=== PATIENT | male | born 1940 | race American Indian/Alaskan Native ===

== ENCOUNTER 2017-02-13 09:11 | Outpatient (CLI) | payer MEDICARE ==
--- NOTE | 2017-02-13 15:33 | PET Report ---
PET/CT:02/13/17 09:11:00 CLINICAL: Right upper lobe lung mass. RADIOPHARMACEUTICAL: 14.77mCi F18-FDG. COMPARISON: CT Chest 01/16/17 TECHNIQUE- Following intravenous injection of F-18 FDG and an approximately 60 minute uptake period, CT and PET images from the mid skull to the upper thighs were acquired with the patient in the fasted state. No contrast was administered. The CT protocol used for this PET CT study is designed for attenuation correction and anatomic localization of PET abnormalities. This solar installer pv CT is not desired to produce and cannot replace, lblxm-lz-lts-art diagnostic CT scans with specific imaging protocols for different body parts and indications. Plasma glucose at the time of this test: 93g/dl. The standardized uptake values (SUV) are normalized to patient body weight and indicate the highest activity concentration (SUV max) in a given disease site. FINDINGS: Brain--Physiologic FDG uptake in the visualized regions of the brain. Neck--Physiologic FDG uptake . Chest--Physiologic FDG uptake in mediastinal blood pool and myocardium. Lungs--the previously described wedge-shaped pleural-based right upper lobe lung opacity measures approximately 1.5 x 1.8 cm and demonstrates minimal FDG uptake with SUV 2.7. Mild patchy opacities in the adjacent lung with FDG uptake. No other lung nodule or mass. Extensive emphysema. Pleura/pericardium--No abnormal uptake. Thoracic nodes--No abnormal uptake. A prominent right axillary lymph node measures 1.5 x 1.4 cm with SUV 2.3 which is equal to background. Hepatobiliary--No abnormal uptake. Liver background SUV mean, as a reference for comparing FDG studies, is 4.2 . No liver mass. Several benign hepatic cyst. The largest is in the medial segment of the left lobe and measures 1.7 cm. Spleen--No abnormal uptake. Pancreas--No abnormal uptake. Adrenal Glands--No abnormal uptake. Kidneys/Ureters/Bladder--No abnormal uptake. Bilateral benign renal cysts. Abdominopelvic Nodes--No abnormal uptake. Bowel/Peritoneum/Mesentery--No abnormal uptake. Pelvic organs--No abnormal uptake. Bones/Soft Tissues--No abnormal uptake. No suspicious bone lesions. IMPRESSION-1. A probably benign 1.8 cm wedge-shaped pleural-based right upper lobe lung opacity. Recommend CT followup in six months. 2. Emphysema and posterior right upper lobe pneumonia versus fibrotic changes. 3. Benign hepatic cysts. 4. A probably benign right axillary lymph node with SUV uptake equal to background.
== END 2017-02-13 09:12 | disposition home or self-care (01) ==
LOC: PET 09:11
PROVIDERS: ATTEND Specialist
DX: J43.2 Centrilobular emphysema (principal); N28.1 Cyst of kidney, acquired; R91.8 Other nonspecific abnormal finding of lung field; K76.89 Other specified diseases of liver
CPT/HCPCS: 78815; A9552; 82962

== ENCOUNTER 2017-07-22 00:22 | Inpatient (IN) | payer MEDICARE ==
[2017-07-22] MEDS ORDERED: TYLENOL ONE (01:16)
[2017-07-22] MEDS ORDERED: TYLENOL PO ONE (01:25)
[2017-07-22 02:11] LABS: Basophils % (Auto) 0.2 % (0.0-1.8); Hematocrit 39.2 % (35.5-45.6); Hemoglobin 13.3 gm/dl (11.8-15.2); Mean Corpuscular HGB Conc 34 % (32-34); Mean Corpuscular Hemoglobin 29 pg (28-32); Mean Corpuscular Volume 86 fl (84-94); Platelet Count 322 K/mm3 (140-440); Red Blood Count 4.58 M/mm3 (3.65-5.03); Red Cell Distribution Width 14.1 % (13.2-15.2); White Blood Count 6.2 K/mm3 (4.5-11.0)
[2017-07-22 02:59] LABS: Anion Gap 21 mmol/L; Blood Urea Nitrogen 12 mg/dL (9-20); Calcium 8.7 mg/dL (8.4-10.2); Carbon Dioxide 22 mmol/L (22-30); Glucose 113 mg/dL (75-100); Potassium 3.5 mmol/L (3.6-5.0); Sodium 139 mmol/L (137-145)
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
--- NOTE | 2017-07-22 06:56 | Admit Criteria Form ---
Admission Criteria Documentation: CARDIOLOGY GRG Clinical Indications for Admission to Inpatient Care ([place]/check or initial the applicable condition/criteria) Hospital admission is needed for appropriate care of the patient because of ANY ONE of the following: [ ] I. Hemodynamic instability as indicated by ALL of the following (1)(2)(3) (4)(5)(6)(7)(8)(9)(10) [ ]a) Vital sign abnormality not readily corrected by appropriate treatment with 12-24 hours for ANY ONE: [ ]i) Hypotension that persists despite appropriate treatment (eg, volume repletion) [ ]ii) Tachycardiathat persists despite appropriate tx ( e.g., analgesia, fluids, sedation as indicated [ ]iii) Orthostatic vital sign changes that persists despite appropriate treatment (eg, volume repletion) [ ]b) Vital sign abnormailty that is severe indicated by ANY ONE of the following: [ ]i) Inadequate perfusion indicated by ANY ONE of the following: [ ] 1) Lactic acidosis (> 2 mmol/L) [ ] 2) New abnormal capillary refill (> 3 seconds) [ ] 3) Reduced urine output [ ] 4) New altered mental status [ ] 5) Myocardial Ischemia [ ] 6) Other metabolic acidosis (arterial pH <7.35 ) not otherwise explained. [ ]ii) Mean arterial pressure[A] less than 60 mm Hg [ ]iii) Mean arterial pressure[A] less than 70 mm Hg after 30 minutes of appropriate treatment (eg, fluid resuscitation) [ ]iv) Sustained heart rate greater than 120 beats per minute in adult or child 6 years or older[B] [ ]v) IV inotropic or vasopressor medication required to maintain adequate blood pressure or perfusion [ ] II. Severe heart failure as indicated by ANY ONE of the following(17)(18) [ ]a) Respiratory distress [ ]b) Hypotension [ ]c) Debilitating anasarca refractory to therapy (eg, tissue breakdown with infection)[C](19) [ ]d) Cardiac arrhythmias of immediate concern [ ]e) Myocardial ischemia [ ] III. Cardiac arrhythmias or findings of immediate concern indicated by ANY ONE of the following (21)(22): [ ] a) Heart rhythms that are inherently dangerous or unstable indicated by ANY ONE of the following (23)(24)(25): [ ] i) Resuscitated ventricular fibrillation or cardiac arrest [ ] ii) Ventricular escape rhythm [ ] iii) Sustained ventricular tachycardia (30 seconds or more of ventricular rhythm at greater than 100 beats per minute) [ ] iv) Nonsustained ventricular tachycardia and ANY ONE of the following: [ ] 1) Suspected cardiac ischemia as cause or consequence of ventricular tachycardia [ ] 2) Acute myocarditis [ ] b) Unstable cardiac conduction defects indicated by ANY ONE of the following(25)(26)(27) [ ] i) Type II second-degree atrioventricular block [ ]ii) Third-degree atrioventricular block [ ]iii) New-onset left bundle branch block with suspected myocardial ischemia [ ]c) Any heart rhythm and ANY ONE of the following (23)(24)(28)(29) (30) [ ] i) Continuous long-term ECG monitoring needed (e.g., initiation of drug requiring monitoring for more than 24 hours) [ ] ii) Patient has automatic implanted cardioverter defibrillator that is repeatedly firing, malfunctioning, or in need of immediate adjustment of settings beyond the scope of ambulatory or observation care [ ]d) Heart rhythms of concern due to ANY ONE of the following: [ ] i) Hypotension [ ] ii) Respiratory distress [ ] iii) Association with other significant symptoms (e.g., bradycardia with syncope or ongoing dizziness, supraventricular tachycardia with chest pain (28)(29)(31) [ ] IV. Monitoring for cardiac contusion beyond the scope of observation care needed [A](32)(33)(34) [ ] V. Surgical or device complication (e.g., valve replacement complication , ICD disfunction or pacemaker dysfunction) (49)(50)(51)(52)(53)(54) [ ] . Inpatient palliative care needed. [F](51)(52) Also use Inpatient Palliative Care Criteria [ ] VII. Nonbacterial thrombotic (marantic) endocarditis(43)(44)(55)(56)(57) [X ] VIII. Cardiology condition, symptom, or finding for which emergency and observation care has failed or are not considered appropriate. [ ] IX. Acute valvular disease requiring inpatient as indicated by ANY ONE of the following (40)(41) [ ]a) Acute valvular regurgitation (42) [ ]b) Noninfectious valvulitis (43)(44) [ ]c) Obstructive valve thrombosis (45)(46) [ ]d) Paravalvular leak(47)(48) [ ]e) Other significant valvular disorder remaining after emergency or observation level of care (as appropriate) [ ]X. Pericardial disease requiring inpatient treatment as indicated by ANY ONE of the following (35)(36)(37)(38) [ ]a) Suspected tamponade [ ]b) Hemopericardium [ ]c) Other significant pericardial disorder remaining after emergency or observation level of care (as appropriate)(39) [ ] XI. Cardiac ischemia beyond scope of emergency and observation care. [ ] XII. Cyanotic heart disease requiring inpatient care as indicated by 1 or more of the following(58)(59)(60): [ ]a) Acute onset of hypoxemia [ ]b) Exacerbation [ ] XIII. Hypertension requiring inpatient treatment as indicated by ANYONE of the following(11)(12)(13)(14): [ ]a) Severe hypertension (SBP greater than 180 mm Hg or DBP greater than 110 mm Hg, or greater than the 95th percentile for age, gender, and height in pediatric patients) that cannot be controlled (eg, to SBP less than 160 mm Hg and DBP less than 100 mm Hg) by emergency department or observation care treatment(15) [ ]b) Acute end organ damage secondary to hypertension (SBP greater than 140 mm Hg or DBP greater than 90 mm Hg) as indicated by ANYONE of the following: [ ] i) Hypertensive encephalopathy (eg, Altered mental status)(16) [ ] ii) Cerebral infarction [ ] iii) Intracranial hemorrhage [ ] iv) Myocardial ischemia or infarction [ ] v) Heart failure (eg, pulmonary edema) [ ] vi) Aortic dissection [ ] vii) Increased creatinine (new) with reduction of more than 50% in estimated glomerular filtration rate from baseline [ ] viii) Papilledema [ ] ix) Retinal hemorrhage [ ] x) Microangiopathic hemolytic anemia [ ] xi) Seizure [ ] xii) Other significant finding secondary to hypertension [ ] XIV. Complications of transplanted heart indicated by ANY ONE of the following(61): [ ]a) Acute graft rejection requiring inpatient management (eg, intravenous imunosuppression)(62)(63) [ ]b) Acute graft heart failure indicated by ANY ONE of the following(64): [ ] i) Hemodynamic instability [ ] ii) Cardiac arrhythmias of immediate concern [ ] iii) Pulmonary edema that is very severe (eg, mechanical ventilation needed, imminent or likely, need for 100% oxygen to keep oxygen saturation above 90%) [ ] iv) Pulmonary edema that is persistent as indicated by ALL of the following: [ ] 1) New need for oxygen therapy to keep oxygen saturation above 90 % (or increased FiO2 need from baseline) [ ] 2) Has not improved sufficiently with emergency department or observation care IV diuretics or other heart failure treatments[E]. [ ] iv) Altered mental status that is severe or persistent [ ] iv) Increased creatinine (new on laboratory test) with reduction of more than 50% in estimated glomerular filtration rate from baseline [ ] iv) Progressively (ongoing) rising creatinine (known from past laboratory test) with reduction of more than 25% in estimated glomerular filtration rate from baseline [ ] iv) Acute renal failure [ ] iv) Acute peripheral ischemia (eg, examination shows pulseless, cool, mottled, or cyanotic extremity) [ ] iv) Pulmonary artery catheter monitoring needed [ ] iv) Other sign or symptom of heart failure requiring inpatient treatment (ie, too severe or not responsive to outpatient and observation care treatment) [ ]c) Infection requiring inpatient management (eg, Hemodynamic instability, need for intravenous antimicrobial treatment)(66)(67)(68)(69)(70) [ ]d) Cardiac allograft vasculopathy requiring inpatient management (eg evidence of cardiacischemia)(71) [ ]e) Other complication of transplanted heart (eg, stroke, severe pulmonary hypertension, severe valvular dysfunction) requiring inpatient management(72) The original [employer] content created by [employer] has been revised. The portions of the content which have been revised are identified through the use of italic text or in bold, and [facility] has neither reviewed nor approved the modified material. All other unmodified content is copyright [employer]. Please see references footnoted in the original [employer] edition 2017 Admission Criteria Met: Yes
--- NOTE | 2017-07-22 07:22 | XRay Report ---
Chest 2 views: Compared to 07/26/16. History: Shortness of breath. Findings: Normal cardiomediastinal silhouette the trachea is line. Suspicion of nodular density noted at the inferior aspect of right clavicle. Density may be from confluence of vessels and rib, however, possibility of a lung nodule cannot be excluded. Scarring is noted in the right upper lobe. Impression: Findings as detailed above. The kidneys and abdomen for further evaluation.
[2017-07-22] MEDS ORDERED: DUONEB *Not for PRN Use IH ONE (07:26)
[2017-07-22] MEDS ORDERED: TYLENOL PO PRN (08:41)
[2017-07-22] MEDS ORDERED: PROVENTIL IH PRN (08:41)
[2017-07-22] MEDS ORDERED: NITROSTAT SL PRN (08:46)
--- NOTE | 2017-07-22 08:48 | History and Physical Report ---
<BRENDAN TOMAS - Last Filed: 07/22/17 19:19> History of Present Illness Date of examination: 07/22/17 Date of admission: 07/22/2017 Chief complaint: Chest Pain History of present illness: Patient is a 77 years old -[place]wegian male with past medical history of hypertension, who presents to the emergency department complaining of chest pain. He states that the pain began 3 weeks ago intermittent but he had a consisted of a dull chest pain since yesterday. The pain was located over the Midsternal somewhat to the epigastrium area. He describes the quality as a chest tightness/discomfort like it feels like something like something is sitting on my chest. It has been a constant pain since yesterday. No aggravating and alleviating factors. He continued to have several episodes of the pain throughout this morning, he got worried so he decided to come to emergency room. Patient did not take anything to relive the pain prior to arrival. At the ED the patient was given nitroglycerin without improvement. He reported shortness of breath and dyspnea on exertion. He denies nausea, vomiting heart palpitations lightheadedness, dizziness, and diaphoresis during these episodes of pain. The patient currently denies having chest pain. Past History Past Medical History: hypertension Past Surgical History: No surgical history, Other (Left rotator cuff, hernia repair ) Social history: denies: smoking, alcohol abuse Family history: hypertension Medications and Allergies Allergies Allergy/AdvReac Type Severity Reaction Status Date / Time coconut oil Allergy Hives Verified 02/28/15 17:03 NSAIDS (Non-Steroidal Allergy Bleeding Verified 05/20/16 13:44 Anti-Inflamma Penicillins Allergy Anaphylaxis Verified 09/12/14 10:41 tomato [Tomato] Allergy Anaphylaxis Verified 09/12/14 10:41 aspirin AdvReac Severe Unknown Verified 03/02/15 11:18 bee sting Allergy Anaphylaxis Uncoded 09/12/14 10:41 wool blankets Allergy Rash Uncoded 02/28/15 17:03 Home Medications Medication Instructions Recorded Confirmed Last Taken Type NIFEdipine 30 mg PO QDAY 10/06/15 07/22/17 10/05/15 History yes traMADol [Ultram] 50 mg PO Q4HR PRN #12 tablet 05/20/16 07/22/17 Unknown Rx Active Meds: Active Medications Acetaminophen (Tylenol) 650 mg PO Q4H PRN PRN Reason: Pain MILD(1-3)/Fever >100.5/WONG Albuterol (Proventil) 2.5 mg IH Q3HRT PRN PRN Reason: Shortness Of Breath Albuterol/Ipratropium (Duoneb *Not For Prn Use*) 1 ampul IH QIDRT KASH Bisacodyl (Dulcolax) 10 mg CA QDAY PRN PRN Reason: Constipation unrelieved by MOM Enoxaparin Sodium (Lovenox) 40 mg SUB-Q DAILY [facility] Nitroglycerin (Nitrostat) 0.4 mg SL .Q5MIN PRN PRN Reason: Chest Pain Review of Systems Constitutional: sweats, no weight loss, no weight gain, no fever, no chills Ears, nose, mouth and throat: no ear pain, no ear discharge, no tinnitis, no decreased hearing, no nose pain Cardiovascular: chest pain, shortness of breath, no orthopnea, no palpitations Respiratory: cough, cough with sputum (yellow) Gastrointestinal: no abdominal pain, no nausea, no vomiting, no diarrhea Genitourinary Male: no dysuria, no hematuria, no flank pain, no discharge, no urinary frequency, no urinary hesitancy Rectal: no pain, no incontinence, no bleeding Musculoskeletal: no neck pain, no shooting arm pain, no arm numbness/tingling, no low back pain, no shooting leg pain Integumentary: no pruritis, no redness, no sores, no wounds Neurological: no transient paralysis, no paralysis, no weakness, no parathesias Psychiatric: no memory loss, no change in sleep habits, no sleep disturbances, no insomnia Endocrine: no cold intolerance, no heat intolerance, no polyphagia, no excessive thirst Hematologic/Lymphatic: no easy bruising, no easy bleeding Allergic/Immunologic: no urticaria, no allergic rhinitis, no wheezing Exam - Constitutional Vitals: Temp Pulse Resp BP Pulse Ox 98.2 F 67 16 138/71 100 07/22/17 07:25 07/22/17 07:59 07/22/17 07:59 07/22/17 07:25 07/22/17 07:25 General appearance: Present: no acute distress - EENT Eyes: Present: PERRL ENT: hearing intact - Neck Neck: Present: supple - Respiratory Respiratory effort: normal Respiratory: bilateral: CTA - Cardiovascular Heart rate: 67 Rhythm: regular Heart Sounds: Present: S1 & S2 - Extremities Extremities: no ischemia Peripheral Pulses: within normal limits - Abdominal General gastrointestinal: Present: soft, non-tender Male genitourinary: Present: deferred - Rectal Rectal Exam: deferred - Integumentary Integumentary: Present: clear, warm, dry - Musculoskeletal Musculoskeletal: strength equal bilaterally - Psychiatric Psychiatric: appropriate mood/affect - Neurologic Neurologic: CNII-XII intact - Allied Health Allied health notes reviewed: nursing Results - Labs CBC & Chem 7: 07/22/17 01:41 07/22/17 01:41 Labs: Laboratory Last Values WBC 6.2 K/mm3 (4.5-11.0) 07/22/17 01:41 RBC 4.58 M/mm3 (3.65-5.03) 07/22/17 01:41 Hgb 13.3 gm/dl (11.8-15.2) 07/22/17 01:41 Hct 39.2 % (35.5-45.6) 07/22/17 01:41 MCV 86 fl (84-94) 07/22/17 01:41 MCH 29 pg (28-32) 07/22/17 01:41 MCHC 34 % (32-34) 07/22/17 01:41 RDW 14.1 % (13.2-15.2) 07/22/17 01:41 Plt Count 322 K/mm3 (140-440) 07/22/17 01:41 Lymph % (Auto) 30.3 % (13.4-35.0) 07/22/17 01:41 [place]y % (Auto) 15.6 % (0.0-7.3) H 07/22/17 01:41 Eos % (Auto) 1.0 % (0.0-4.3) 07/22/17 01:41 Baso % (Auto) 0.2 % (0.0-1.8) 07/22/17 01:41 Lymph # 1.9 K/mm3 (1.2-5.4) 07/22/17 01:41 [place]y # 1.0 K/mm3 (0.0-0.8) H 07/22/17 01:41 Eos # 0.1 K/mm3 (0.0-0.4) 07/22/17 01:41 Baso # 0.0 K/mm3 (0.0-0.1) 07/22/17 01:41 Seg Neutrophils % 52.9 % (40.0-70.0) 07/22/17 01:41 Seg Neutrophils # 3.3 K/mm3 (1.8-7.7) 07/22/17 01:41 Sodium 139 mmol/L (137-145) 07/22/17 01:41 Potassium 3.5 mmol/L (3.6-5.0) L 07/22/17 01:41 Chloride 100.0 mmol/L (98-107) 07/22/17 01:41 Carbon Dioxide 22 mmol/L (22-30) 07/22/17 01:41 Anion Gap 21 mmol/L 07/22/17 01:41 BUN 12 mg/dL (9-20) 07/22/17 01:41 Creatinine 1.1 mg/dL (0.8-1.5) 07/22/17 01:41 Estimated GFR > 60 ml/min 07/22/17 01:41 BUN/Creatinine Ratio 10.90 % 07/22/17 01:41 Glucose 113 mg/dL (75-100) H 07/22/17 01:41 Calcium 8.7 mg/dL (8.4-10.2) 07/22/17 01:41 Troponin T < 0.010 ng/mL (0.00-0.029) 07/22/17 06:46 - Imaging and Cardiology Chest x-ray: image reviewed (No acute cardiopulmonary process noted.) Assessment and Plan Assessment and plan: Chest Pain Admit to Telemetry floor for continues cardiac monitoring EKG normal sinus rhythm, we will also get another EKG in order for any changes that have taken since the first one. Negative cardiac enzyme X2 Nitroglycerin when necessary Abnormal stress test, patient scheduled for coronary angiogram (LHC) in AM for definitive diagnosis. Started on IV Fluid Hydration and NPO after midnight Started on Lopressor 25 mg PO BID and ASA 325mg daily we will obtain complete lipid panel in the AM VL Carotid duplex bilateral pending Cardiology consulted. Hypertension Resume on home antihypertensive pills IV hydralazine for SBP >160 Hypokalemia Replaced Closely monitor electrolytes Gastroesophageal reflux disease (GERD) Started him on protonix VTE prophylaxis Lovenox Advance Directives: Yes VTE prophylaxis?: Chemical Contraindication Mechanical VTE Prophylaxis: Treatment Not Indicated Plan of care discussed with patient/family: Yes <LAKE,RHODA Garcia - Last Filed: 07/22/17 23:55> History of Present Illness Date of admission: 07/22/17 08:41 Medications and Allergies Active Meds: Active Medications Acetaminophen (Tylenol) 650 mg PO Q4H PRN PRN Reason: Pain MILD(1-3)/Fever >100.5/WONG Last Admin: 07/22/17 17:06 Dose: 650 mg Albuterol (Proventil) 2.5 mg IH Q3HRT PRN PRN Reason: Shortness Of Breath Albuterol/Ipratropium (Duoneb *Not For Prn Use*) 1 ampul IH TIDRT [facility] Last Admin: 07/22/17 21:39 Dose: 1 ampul Aspirin (Aspirin) 325 mg PO QDAY KASH Bisacodyl (Dulcolax) 10 mg CA QDAY PRN PRN Reason: Constipation unrelieved by MOM Enoxaparin Sodium (Lovenox) 40 mg SUB-Q DAILY [facility] Last Admin: 07/22/17 10:00 Dose: Not Given Sodium Chloride (Nacl 0.9% 1000 Ml) 1,000 mls @ 75 mls/hr IV DIRECT KASH Sodium Chloride (Nacl 0.9% 500 Ml) 500 mls @ 50 mls/hr IV DIRECT [facility] Stop: 07/22/17 23:59 Metoprolol Tartrate (Lopressor) 25 mg PO BID [facility] Last Admin: 07/22/17 22:46 Dose: 25 mg Nitroglycerin (Nitrostat) 0.4 mg SL .Q5MIN PRN PRN Reason: Chest Pain Exam - Constitutional Vitals: Temp Pulse Resp BP Pulse Ox 98.6 F 88 18 138/91 94 07/22/17 20:00 07/22/17 22:46 07/22/17 20:00 07/22/17 22:46 07/22/17 20:00 Results - Labs CBC & Chem 7: 07/22/17 01:41 07/22/17 01:41 Labs: Laboratory Last Values WBC 6.2 K/mm3 (4.5-11.0) 07/22/17 01:41 RBC 4.58 M/mm3 (3.65-5.03) 07/22/17 01:41 Hgb 13.3 gm/dl (11.8-15.2) 07/22/17 01:41 Hct 39.2 % (35.5-45.6) 07/22/17 01:41 MCV 86 fl (84-94) 07/22/17 01:41 MCH 29 pg (28-32) 07/22/17 01:41 MCHC 34 % (32-34) 07/22/17 01:41 RDW 14.1 % (13.2-15.2) 07/22/17 01:41 Plt Count 322 K/mm3 (140-440) 07/22/17 01:41 Lymph % (Auto) 30.3 % (13.4-35.0) 07/22/17 01:41 Dooly % (Auto) 15.6 % (0.0-7.3) H 07/22/17 01:41 Eos % (Auto) 1.0 % (0.0-4.3) 07/22/17 01:41 Baso % (Auto) 0.2 % (0.0-1.8) 07/22/17 01:41 Lymph # 1.9 K/mm3 (1.2-5.4) 07/22/17 01:41 [place]y # 1.0 K/mm3 (0.0-0.8) H 07/22/17 01:41 Eos # 0.1 K/mm3 (0.0-0.4) 07/22/17 01:41 Baso # 0.0 K/mm3 (0.0-0.1) 07/22/17 01:41 Seg Neutrophils % 52.9 % (40.0-70.0) 07/22/17 01:41 Seg Neutrophils # 3.3 K/mm3 (1.8-7.7) 07/22/17 01:41 Sodium 139 mmol/L (137-145) 07/22/17 01:41 Potassium 3.5 mmol/L (3.6-5.0) L 07/22/17 01:41 Chloride 100.0 mmol/L (98-107) 07/22/17 01:41 Carbon Dioxide 22 mmol/L (22-30) 07/22/17 01:41 Anion Gap 21 mmol/L 08/22/17 01:41 BUN 12 mg/dL (9-20) 07/22/17 01:41 Creatinine 1.1 mg/dL (0.8-1.5) 07/22/17 01:41 Estimated GFR > 60 ml/min 07/22/17 01:41 BUN/Creatinine Ratio 10.90 % 07/22/17 01:41 Glucose 113 mg/dL (75-100) H 07/22/17 01:41 Calcium 8.7 mg/dL (8.4-10.2) 07/22/17 01:41 Troponin T < 0.010 ng/mL (0.00-0.029) 07/22/17 06:46 Assessment and Plan Assessment and plan: I saw and evaluated the patient. I agree with the findings and the plan of care as documented in the Nurse Practitioner's~note, plan for cardiac cath tomorrow.
[2017-07-22] MEDS: LOVENOX SUB-Q SCH (10:00)
[2017-07-22] MEDS ORDERED: DULCOLAX PR PRN (10:00)
[2017-07-22] MEDS ORDERED: LEXISCAN IV ONE (10:30)
[2017-07-22] MEDS ORDERED: DUONEB *Not for PRN Use IH SCH (12:00)
[2017-07-22] MEDS ORDERED: NACL 0.9% 1000 ML 1,000 ML IV SCH (13:00)
--- NOTE | 2017-07-22 13:33 | Consultation ---
History of Present Illness Consult date: 07/22/17 Requesting physician: BRENDAN TOMAS Consult reason: other (abnormal stress test) History of present illness: The patient is a 77-year-old -[place] male with a past medical history significant for hypertension, hyperlipidemia and former tobacco user (quit smoking 40 years ago). He is previously unknown to our practice. He presented with complaints of chest pain for 3 weeks prior to arrival. He describes his chest pain as an intermittent, nonradiating, midsternal pressure which is sometimes aggravated by exertion. The pain is associated with shortness of breath and sometimes dyspnea on exertion. He also admits to some intermittent dizziness over the past several months, particularly when driving. He denies any palpitations, nausea, vomiting, diaphoresis or syncope. 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 The patient underwent Lexiscan MPI stress testing this morning which showed transient ischemic dilation (value of 1.29) and which was equivocal for ischemia. Cardiology has been consulted for further evaluation/management. Past History Past Medical History: hypertension, hyperlipidemia Past Surgical History: Other (Left rotator cuff, hernia repair ) Social history: smoking (former). denies: alcohol abuse Family history: CAD (father of [place]), hypertension Medications and Allergies Allergies Allergy/AdvReac Type Severity Reaction Status Date / Time coconut oil Allergy Hives Verified 02/28/15 17:03 NSAIDS (Non-Steroidal Allergy Bleeding Verified 05/20/16 13:44 Anti-Inflamma Penicillins Allergy Anaphylaxis Verified 09/12/14 10:41 tomato [Tomato] Allergy Anaphylaxis Verified 09/12/14 10:41 aspirin AdvReac Severe Unknown Verified 03/02/15 11:18 bee sting Allergy Anaphylaxis Uncoded 09/12/14 10:41 wool blankets Allergy Rash Uncoded 02/28/15 17:03 Home Medications Medication Instructions Recorded Confirmed Last Taken Type NIFEdipine 30 mg PO QDAY 10/06/15 07/22/17 10/05/15 History yes traMADol [Ultram] 50 mg PO Q4HR PRN #12 tablet 05/20/16 07/22/17 Unknown Rx Active Meds: Active Medications Acetaminophen (Tylenol) 650 mg PO Q4H PRN PRN Reason: Pain MILD(1-3)/Fever >100.5/WONG Albuterol (Proventil) 2.5 mg IH Q3HRT PRN PRN Reason: Shortness Of Breath Albuterol/Ipratropium (Duoneb *Not For Prn Use*) 1 ampul IH TIDRT [facility] Aspirin (Aspirin) 325 mg PO QDAY [facility] Bisacodyl (Dulcolax) 10 mg [place] QDAY PRN PRN Reason: Constipation unrelieved by MOM Enoxaparin Sodium (Lovenox) 40 mg SUB-Q DAILY [facility] Last Admin: 07/22/17 10:00 Dose: Not Given Sodium Chloride (Nacl 0.9% 1000 Ml) 1,000 mls @ 75 mls/hr IV DIRECT KASH Sodium Chloride (Nacl 0.9% 500 Ml) 500 mls @ 50 mls/hr IV DIRECT [facility] Stop: 07/22/17 23:59 Metoprolol Tartrate (Lopressor) 25 mg PO BID [facility] Nitroglycerin (Nitrostat) 0.4 mg SL .Q5MIN PRN PRN Reason: Chest Pain Review of Systems Constitutional: no weight loss, no weight gain, no fever, no chills, no sweats Ears, nose, mouth and throat: no ear pain, no nose pain, no sinus pressure, no sinus pain Cardiovascular: chest pain, shortness of breath, dyspnea on exertion, high blood pressure, decreased exercise tolerance, no orthopnea, no palpitations, no rapid/irregular heart beat, no edema, no syncope, no lightheadedness, no paroxysmal nocturnal dyspnea, no leg edema Respiratory: no cough, no congestion, no wheezing, no pain on inspiration Gastrointestinal: no abdominal pain, no nausea, no vomiting, no diarrhea, no constipation, no change in bowel habits Genitourinary Male: no dysuria, no hematuria, no flank pain, no discharge, no urinary frequency, no urinary hesitancy Musculoskeletal: no neck stiffness, no neck pain, no shooting arm pain, no arm numbness/tingling, no low back pain, no shooting leg pain, no leg numbness/ tingling, no redness of joints Integumentary: no rash, no pruritis, no redness, no sores, no wounds Neurological: no head injury, no paralysis, no weakness, no parathesias, no numbness, no tingling, no seizures, no syncope Psychiatric: no anxiety Endocrine: no cold intolerance, no heat intolerance Hematologic/Lymphatic: no easy bruising, no easy bleeding, no lymphadenopathy Allergic/Immunologic: no urticaria, no wheezing, no persistent infections Physical Examination Vital Signs Temp Pulse Resp BP Pulse Ox 101.6 F H 91 H 18 126/83 95 07/22/17 01:20 07/22/17 01:20 07/22/17 01:20 07/22/17 01:20 07/22/17 01:20 General appearance: no acute distress HEENT: Positive: PERRL, Normocephaly, Mucus Membranes Moist, Other (arcus senilis) Neck: Positive: neck supple, trachea midline Cardiac: Positive: Reg Rate and Rhythm, S1/S2 Lungs: Positive: Normal Exam, clear to auscultation, Normal Breath Sounds Neuro: Positive: Grossly Intact, Motor Function Intact Abdomen: Positive: Unremarkable, Soft, Active Bowel Sounds. Negative: Tender Skin: Positive: Clear. Negative: Rash, Wound Musculoskeletal: No Fluid Collection, No Pain, Normal Range of Motion Extremities: Present: upper extr. pulses, lower extr. pulses. Absent: edema Results 07/22/17 01:41 07/22/17 01:41 - Imaging and Cardiology Echo: pending Cardiac cath: pending EKG: image reviewed EKG interpretations - Telemetry EKG Rhythm: Sinus Rhythm - EKG Sinus rhythms and dysrhythmias: sinus rhythm Assessment and Plan Assessment: Chest pain - with somewhat typical features for cardiac pain; ECG with NAF; Alison negative for AMI. Abnormal stress test HTN H/o tobacco use - quit smoking 40 years ago. Plan: Plan for coronary angiogram in AM for definitive diagnosis. Indications, potential risks, and benefits of LH reveiwed with pt and he is agreeable to proceed with LHC in AM. Consents obtained. NPO after MN. Initiate lopressor, 25mg PO BID, and ASA, 325mg daily. Obtain echocardiogram. Obtain lipid panel in AM. Assessment and plan reviewed with pt at bedside. The patient has been seen in conjunction with Dr. Walker who agrees with the assessment and plan of care.
[2017-07-22] MEDS ORDERED: NACL 0.9% 500 ML 500 ML IV SCH (14:00)
--- NOTE | 2017-07-22 14:20 | Cat Scan Report ---
CT of the chest with IV contrast. History: Nodule suspected on current chest x-ray. Findings: Severe emphysematous changes are seen with bullous changes in the upper lobes especially. There is a 1.3 cm in diameter pleural based nodule in the right posterior thorax with no discernible calcification. No additional pulmonary nodules or masses are seen. There is no pleural fluid. There is no mediastinal or hilar adenopathy. There is aneurysmal dilatation of the patient and thoracic aorta. No pleural fluid is seen. Incidental note is made of multiple circumscribed hypodensities within the liver consistent with cysts. Small cysts are noted in the upper pole of the right kidney which is incompletely imaged. Impression: 1. 1.3 cm in diameter right pleural-based nodule. Neoplastic process cannot be excluded. 2. Severe COPD/emphysema. 3. Aneurysmal dilatation of the descending thoracic aorta. 4. Multiple hepatic and right renal cysts.
[2017-07-22] MEDS ORDERED: K-DUR PO ONE (20:00)
[2017-07-22] MEDS: DUONEB *Not for PRN Use IH SCH (21:39)
[2017-07-22] MEDS ORDERED: LOPRESSOR PO SCH (22:00)
--- NOTE | 2017-07-23 01:32 | Treadmill Report ---
Resting images revealed diminished radioisotope activity in the inferior wall noted on vertical axis and short axis. However, this was less prominent on post-Lexiscan images. There was homogeneous radioisotope activity noted on the post-Lexiscan images. Gated scan revealed ejection fraction of 52% without any segmental motion abnormality. There was transient ischemic dilatation of the left ventricle post-Lexiscan at 1.29. IMPRESSION: This test is equivocal for ischemia. This is because of transient ischemic dilatation and some inferior wall decreased perfusion noted on the resting scan, although there is marked improvement on post Lexiscan images. Clinical correlation suggested. JOB# [id number] AMADO/HILTON
[2017-07-23 05:58] LABS: Anion Gap 20 mmol/L; Blood Urea Nitrogen 16 mg/dL (9-20); Calcium 8.6 mg/dL (8.4-10.2); Carbon Dioxide 22 mmol/L (22-30); Chloride 101.6 mmol/L (98-107); Glucose 114 mg/dL (75-100); Hematocrit 36.7 % (35.5-45.6); Hemoglobin 12.6 gm/dl (11.8-15.2); Mean Corpuscular HGB Conc 34 % (32-34); Mean Corpuscular Hemoglobin 30 pg (28-32); Mean Corpuscular Volume 86 fl (84-94); Platelet Count 268 K/mm3 (140-440); Potassium 3.6 mmol/L (3.6-5.0); Red Blood Count 4.25 M/mm3 (3.65-5.03); Red Cell Distribution Width 14.6 % (13.2-15.2); Sodium 140 mmol/L (137-145); White Blood Count 4.9 K/mm3 (4.5-11.0)
[2017-07-23 06:05] LABS: INR 1.09 (0.87-1.13)
[2017-07-23 06:17] LABS: Cholesterol 161 mg/dL (50-199); HDL Cholesterol 35 mg/dL (40-59); LDL Cholesterol,Direct 106 mg/dL (50-130); Triglycerides 103 mg/dL (2-149)
[2017-07-23 07:17] LABS: Anisocytosis 1+; Basophils % (Manual) 0 % (0.0-1.8); Blastocytes % (Manual) 0 %; Diff Status Complete; Platelet Estimate Consistent w Auto
[2017-07-23] MEDS: DUONEB *Not for PRN Use IH SCH ×3 (08:04→20:59)
[2017-07-23] MEDS ORDERED: ASPIRIN PO SCH (10:00)
[2017-07-23] MEDS ORDERED: HEPARIN/NS 5000 UNIT/500ML(CATH LAB) 1,000 ML IR ONE (10:12)
[2017-07-23] MEDS ORDERED: HEPARIN 10,000 UNITS/10 ML ONE (10:12)
[2017-07-23] MEDS ORDERED: CALAN ONE (10:12)
[2017-07-23] MEDS ORDERED: NITROGLYCERIN SYRINGE 0 ML ONE (10:12)
[2017-07-23] MEDS ORDERED: NACL 0.9% 500 ML 500 ML ONE (10:14)
[2017-07-23] MEDS: SUBLIMAZE ONE ×2 (10:33→11:00)
[2017-07-23] MEDS: VERSED ONE ×2 (10:34→11:01)
[2017-07-23] MEDS: XYLOCAINE 2% INFILTRATI ONE ×2 (10:36→11:01)
--- NOTE | 2017-07-23 10:41 | Progress Note ---
Assessment and Plan Assessment: Chest pain - with somewhat typical features for cardiac pain; ECG with NAF; Alison negative for AMI. CMP Mild to moderate MR Abnormal stress test HTN H/o tobacco use - quit smoking 40 years ago. ASA allergy Plan: Proceed with coronary angiogram today. Await findings. Echo reviewed - EF 40-45%, abnormal diastolic function, mild AR, mild to moderate MR, trace TR. Optimize anti-hypertensive regimen. Assessment and plan reviewed with pt at bedside. The patient has been seen in conjunction with Dr. Walker who agrees with the assessment and plan of care. Subjective Date of service: 07/23/17 Principal diagnosis: abnormal stress test Interval history: Pt seen in [facility] prior to [facility]. No complaints. VSS. Objective Last Vital Signs Temp 99.2 F 07/23/17 07:55 Pulse 74 07/23/17 08:13 Resp 16 07/23/17 08:13 BP 156/88 07/23/17 07:55 Pulse Ox 94 07/23/17 07:55 - Physical Examination General: Appears Well, No Apparent Distress HEENT: Positive: PERRL, Normocephaly, Mucus Membranes Moist, Other (arcus senilis) Neck: Positive: neck supple, trachea midline Cardiac: Positive: Reg Rate and Rhythm, S1/S2 Lungs: Positive: clear to auscultation Neuro: Positive: Grossly Intact, Motor Function Intact Abdomen: Positive: Unremarkable, Soft, Active Bowel Sounds. Negative: Tender Skin: Positive: Clear. Negative: Rash, Wound Musculoskeletal: No Fluid Collection, No Pain, Normal Range of Motion Extremities: Present: upper extr. pulses, lower extr. pulses. Absent: edema - Labs and Meds Coagulation 07/23/17 Range/Units 05:05 PT 14.7 (12.2-14.9) Sec. INR 1.09 (0.87-1.13) Lipids 07/23/17 Range/Units 05:05 Triglycerides 103 (2-149) mg/dL Cholesterol 161 (50-199) mg/dL HDL Cholesterol 35 L (40-59) mg/dL Cholesterol/HDL Ratio 4.60 % CBC 07/23/17 Range/Units 05:05 WBC 4.9 (4.5-11.0) K/mm3 RBC 4.25 (3.65-5.03) M/mm3 Hgb 12.6 (11.8-15.2) gm/dl Hct 36.7 (35.5-45.6) % Plt Count 268 (140-440) K/mm3 Comprehensive Metabolic Panel 07/23/17 Range/Units 05:05 Sodium 140 (137-145) mmol/L Potassium 3.6 (3.6-5.0) mmol/L Chloride 101.6 (98-107) mmol/L Carbon Dioxide 22 (22-30) mmol/L BUN 16 (9-20) mg/dL Creatinine 1.0 (0.8-1.5) mg/dL Glucose 114 H (75-100) mg/dL Calcium 8.6 (8.4-10.2) mg/dL - Imaging and Cardiology EKG: image reviewed Echo: report reviewed (EF 40-45%, abnormal diastolic function, mild AR, mild to moderate MR, trace TR. ) Cardiac cath: pending - Telemetry EKG Rhythm: Sinus Rhythm - EKG Sinus rhythms and dysrhythmias: sinus rhythm
[2017-07-23] MEDS: ANGIOMAX IV ONE ×2 (11:28→11:30)
[2017-07-23] MEDS ORDERED: EFFIENT PO ONE (11:37)
[2017-07-23] MEDS ORDERED: NACL 0.9% 250ML 250 ML ONE (11:48)
[2017-07-23] MEDS: EFFIENT PO SCH (11:54)
--- NOTE | 2017-07-23 11:58 | Event Note ---
Date: 07/23/17 Pt s/p LHC via right femoral artery with subsequent PCI of left circumflex coronary artery with BMS. In setting of true ASA allergy, will initiate effient alone and consider ASA desensitization as OP. Initiate lipitor. Cont observation on telemetry overnight with possible d/c home in AM. Maurice LYONS NP / DR. BAPTISTE
[2017-07-23] MEDS ORDERED: ALUM-MAG HYDROX-SIMETH 200-200-20MG/5ML PO PRN (12:16)
[2017-07-23] MEDS ORDERED: ALUM-MAG HYDROX-SIMETH 200-200-20MG/5ML ONE (12:56)
[2017-07-23] MEDS ORDERED: NACL 0.9% 1000 ML 1,000 ML ONE (13:07)
--- NOTE | 2017-07-23 13:07 | Cardiac Catherization Report ---
CARDIAC CATHETERIZATION REFERRING PHYSICIANS: 1. Mariya Borges MD 2. Arthur Walker MD INDICATION FOR PROCEDURE: The patient is a very pleasant 77-year-old -[place] gentleman with multiple risk factors presents with unstable angina and a significantly abnormal stress test, referred for left heart catheterization. Risks, benefits, and potential alternatives explained at length prior to obtaining informed consent. PROCEDURE IN DETAIL: The patient was brought to the cork slabs sawyer in a postabsorptive state, prepped and draped in sterile fashion. The patient is some 6 foot 5 and too tall for radial approach. Thus, we used a groin approach, 8 mL of 2% lidocaine used to anesthetize the right groin. A standard 6 [place] sheath used to cannulate the right common femoral artery via modified Seldinger technique. All exchanges performed to exchange a J-tip guidewire. JL3.5 catheter used to engage the left main. No dampening or ventricularization. Cineangiography performed in all projections. JR4 catheter used to cross the aortic valve under fluoroscopic guidance. Left ventriculography performed in [address] projections via hand injections, catheter flushed. Manual pullback performed with continuous pressure monitoring. Catheter used to engage the right coronary. No dampening or ventricularization. Cineangiography performed in all projections. DATA: Aortic pressure is 120/70, LV pressure is 120, LVEDP of mmHg. Left ventriculography revealed normal systolic performance with estimated ejection fraction of 50% to 55%. No evidence of aortic stenosis. CORONARY ANATOMY: This is a codominant system. Left main is a large vessel, no significant disease, bifurcates in left anterior descending and left circumflex. LAD is a moderate sized vessel, courses anterior intergroove, wraps around the apex. Luminal irregularities, but no significant disease. Left circumflex is a moderate sized vessel, courses AV groove, large OM trunk, small left PDA. There is an ulcerated 90% stenosis in the mid left circumflex, hazy, likely consistent without atherothrombosis, likely culprit. HAYDEE 2 flow. No other significant disease in the left system. Right coronary is a moderate sized vessel, courses AV groove, distally bifurcates in the posterior descending and posterolateral branches. There is mild disease in the mid segment just distal to an aneurysmal segment, which is approximately 30% to 40% stenosis. HAYDEE 3 flow. At this point, given abnormal stress test, the patient's current medications, presentation of unstable angina and catheterization finding of a culprit atherothrombotic lesion in the mid left circumflex, I decided to proceed with PCI. The patient was loaded with Angiomax. Abnormal ACT is confirmed. The patient already received aspirin. We used an EBU 3.75 guide to engage the vessel without difficulty. A [place] wire was used to cross the lesion without difficulty. We used a direct stent approach with Integrity bare metal stent 3.5 x 15, deployed at 10 JUDITH for 30 seconds. Excellent angiographic result. Next, intravascular ultrasound was performed, multiple passes were made which revealed a well apposed and well expanded stent, HAYDEE 3 flow, no complications. Final excellent angiographic result. The patient remains clinically stable, chest pain free. CONCLUSIONS: 1. Severe single vessel coronary artery disease. a. Atherothrombosis of the mid left circumflex, resulting in 80% to 90% stenosis with HAYDEE 2 flow, most likely culprit lesion. Under this, successful IVUS guided PCI with placement of integrity 3.5 x 15 bare metal stent with excellent final angiographic and ultrasonographic results. 2. Nonobstructive disease in the remainder of the coronary tree including a 30% to 40% mid right coronary stenosis. 3. Preserved left ventricular systolic performance with estimated ejection fraction of 50% to 55%. 4. No evidence of aortic stenosis. 5. Normal LVEDP. Standard groin care. Bed rest for 6 hours. The patient has been loaded with Effient and aspirin. protocol. The patient is clinically stable, chest pain free. Results of procedure were explained to the patient and all questions and concerns were addressed. There is no family available at this time. JOB# [id number] SBSaira/HILTON
--- NOTE | 2017-07-23 16:25 | Progress Note ---
Assessment and Plan Unstable angina EKG normal sinus rhythm, Negative cardiac enzyme X2 Nitroglycerin when necessary Abnormal stress test, patient was scheduled for coronary angiogram (LHC) for definitive diagnosis. Pt s/p LHC today via right femoral artery with subsequent PCI of left circumflex coronary artery with BMS. In setting of true ASA allergy, initiated effient alone and consider ASA desensitization as OP. Initiate lipitor. Hypertension Resumed on home antihypertensive pills IV hydralazine for SBP >160 Hypokalemia Replaced Closely monitor electrolytes Gastroesophageal reflux disease (GERD) Started him on protonix VTE prophylaxis Lovenox Brief History: Patient is a 77 years old -Mauritian male with past medical history of hypertension, who presented to the emergency department complaining of chest pain began 3 weeks ago intermittently, but got constant for one day before admission. Subjective Date of service: 07/23/17 Principal diagnosis: abnormal stress test Interval history: Pt seen and examined s/p cardiac cath with PCI today procedure tolerated well c/o back pain Objective - Constitutional Vitals: Vital Signs - 12hr 07/23/17 07/23/17 07/23/17 04:37 05:42 07:55 Temperature 98.2 F 99.2 F Pulse Rate 76 75 74 Pulse Rate [ Anterior Bilateral Throughout] Respiratory 18 18 Rate Respiratory Rate [Anterior Bilateral Throughout] Blood Pressure 171/92 156/88 O2 Sat by Pulse 98 94 Oximetry 07/23/17 07/23/17 07/23/17 08:04 08:13 12:00 Temperature Pulse Rate 63 Pulse Rate [ 74 74 Anterior Bilateral Throughout] Respiratory 12 Rate Respiratory 16 16 Rate [Anterior Bilateral Throughout] Blood Pressure 158/58 O2 Sat by Pulse 95 Oximetry 07/23/17 07/23/17 07/23/17 12:15 12:30 12:45 Temperature Pulse Rate 62 66 63 Pulse Rate [ Anterior Bilateral Throughout] Respiratory 16 16 22 Rate Respiratory Rate [Anterior Bilateral Throughout] Blood Pressure 155/90 168/85 140/83 O2 Sat by Pulse 92 96 95 Oximetry 07/23/17 07/23/17 07/23/17 13:00 13:15 13:45 Temperature Pulse Rate 64 67 66 Pulse Rate [ Anterior Bilateral Throughout] Respiratory 19 15 25 H Rate Respiratory Rate [Anterior Bilateral Throughout] Blood Pressure 156/99 152/101 141/88 O2 Sat by Pulse 95 99 99 Oximetry 07/23/17 07/23/17 07/23/17 13:50 13:55 14:00 Temperature Pulse Rate 63 66 65 Pulse Rate [ Anterior Bilateral Throughout] Respiratory 18 20 16 Rate Respiratory Rate [Anterior Bilateral Throughout] Blood Pressure 148/86 153/97 140/90 O2 Sat by Pulse 99 99 98 Oximetry 07/23/17 07/23/17 07/23/17 14:05 14:19 14:30 Temperature Pulse Rate 66 70 69 Pulse Rate [ Anterior Bilateral Throughout] Respiratory 20 22 20 Rate Respiratory Rate [Anterior Bilateral Throughout] Blood Pressure 145/85 158/97 162/94 O2 Sat by Pulse 100 100 100 Oximetry General appearance: Present: no acute distress, well-nourished - EENT Eyes: PERRL, EOM intact ENT: hearing intact, clear oral mucosa Ears: bilateral: normal - Neck Neck: supple, normal ROM - Respiratory Respiratory effort: normal Respiratory: bilateral: CTA - Breasts Breasts: normal - Cardiovascular Rhythm: regular Heart Sounds: Present: S1 & S2. Absent: gallop, rub Extremities: pulses intact, No edema, normal color, Full ROM - Gastrointestinal General gastrointestinal: Present: soft, non-tender, non-distended, normal bowel sounds - Integumentary Integumentary: clear, warm, dry - Musculoskeletal Musculoskeletal: 1, strength equal bilaterally - Neurologic Neurologic: moves all extremities - Psychiatric Psychiatric: memory intact, appropriate mood/affect, intact judgment & insight - Labs CBC & Chem 7: 07/23/17 05:05 07/23/17 05:05 Labs: Abnormal lab results 07/23/17 07/23/17 07/23/17 Range/Units 05:05 05:05 05:40 Monocytes % (Manual) 16.0 H (0.0-7.3) % Lymphocytes # (Manual) 1.0 L (1.2-5.4) K/mm3 Glucose 114 H (75-100) mg/dL POC Glucose 114 H (70-105) HDL Cholesterol 35 L (40-59) mg/dL - Imaging and cardiology Chest x-ray: report reviewed CT scan - chest: report reviewed
[2017-07-23] MEDS ORDERED: MORPHINE IV PRN (17:04)
[2017-07-23] MEDS ORDERED: PERCOCET 5/325 PO PRN (17:06)
[2017-07-23] MEDS: LOPRESSOR PO SCH (21:57)
[2017-07-24] MEDS: DUONEB *Not for PRN Use IH SCH ×2 (08:43→13:54)
[2017-07-24] MEDS ORDERED: ZESTRIL PO SCH (10:00)
--- NOTE | 2017-07-24 10:02 | Progress Note ---
Assessment and Plan Assessment: Chest pain - resolved; with somewhat typical features for cardiac pain; ECG with NAF; Alison negative for AMI. CAD - Pt s/p LHC via right femoral artery with subsequent PCI of left circumflex coronary artery with BMS. In setting of true ASA allergy, will initiate effient alone and consider ASA desensitization as OP. CMP - EF 40 - 45% Mild to moderate MR HTN H/o tobacco use - quit smoking 40 years ago. ASA allergy Plan: Optimize anti-hypertensive regimen - initiate lisinopril. Cont effient, lipitor, lopressor. Encourage increased activity/ambulation. If BPs improve and pt tolerates activity & ambulation today, possible discharge home this afternoon. Assessment and plan reviewed with pt at bedside. The patient has been seen in conjunction with Dr. Walker who agrees with the assessment and plan of care. Subjective Date of service: 07/24/17 Principal diagnosis: abnormal stress test Interval history: Pt resting comfortably in bed. S/p LHC via right femoral artery with PCI yesterday. Denies any chest pain overnight. BPs remain labile and elevated this AM. Pt states he has not yet been OOB. Objective Last Vital Signs Temp 97.8 F 07/24/17 08:55 Pulse 75 07/24/17 08:55 Resp 16 07/24/17 08:55 BP 133/80 07/24/17 08:55 Pulse Ox 94 07/24/17 08:55 - Physical Examination General: Appears Well, No Apparent Distress HEENT: Positive: PERRL, Normocephaly, Mucus Membranes Moist, Other (arcus senilis) Neck: Positive: neck supple, trachea midline Cardiac: Positive: Reg Rate and Rhythm, S1/S2 Lungs: Positive: clear to auscultation Neuro: Positive: Grossly Intact, Motor Function Intact Abdomen: Positive: Unremarkable, Soft, Active Bowel Sounds. Negative: Tender Skin: Positive: Clear. Negative: Rash, Wound Incision: Cardiac Cath Site (right femoral, c/d/i, no evidence of bleeding or hematoma) Musculoskeletal: No Fluid Collection, No Pain, Normal Range of Motion Extremities: Present: upper extr. pulses, lower extr. pulses. Absent: edema - Imaging and Cardiology EKG: image reviewed Echo: report reviewed (EF 40-45%, abnormal diastolic function, mild AR, mild to moderate MR, trace TR. ) Cardiac cath: report reviewed (PCI of circ) - Telemetry EKG Rhythm: Sinus Rhythm - EKG Sinus rhythms and dysrhythmias: sinus rhythm
[2017-07-24 10:05] LABS: Anion Gap 18 mmol/L; Blood Urea Nitrogen 13 mg/dL (9-20); Calcium 8.3 mg/dL (8.4-10.2); Carbon Dioxide 23 mmol/L (22-30); Chloride 103.3 mmol/L (98-107); Glucose 115 mg/dL (75-100); Potassium 4.3 mmol/L (3.6-5.0); Sodium 140 mmol/L (137-145)
[2017-07-24] MEDS: LOPRESSOR PO SCH (10:55)
[2017-07-24] MEDS: EFFIENT PO SCH (10:57)
[2017-07-24] MEDS: LOVENOX SUB-Q SCH (11:00)
--- NOTE | 2017-07-24 12:19 | Discharge Summary ---
Providers - Providers Date of Admission: 07/22/17 08:41 Date of discharge: 07/24/17 Attending physician: RHODA BETHEA 07/22/17 12:06 Consult to Physician [CONS] Routine Consulting Provider: TRUDY BAPTISTE Reason For Exam: abnormal stress test Place consult to:: Dr. Maurice Baptiste Notified:: Sylvia LARA Comment:: [facility] 07/23/17 11:47 Consult to Cardiac Rehabilitation [CONS] Routine Reason For Exam: Cardiac Rehab Evaluation Primary care physician: LPN INSTRUCTOR Hospitalization Condition: Stable Pertinent studies: EKG shows normal: sinus rhythm, axis, intervals, QRS complexes, ST-T waves Rate: normal Radiology results: image reviewed Chest x-ray does not show any acute process. There are no pleural effusions, obvious pneumonia and there is no pneumothorax. 2d echo: Ef 40-45% Stress test: inferior wall ischemia CAROTID DUPLEX : <50% STENOSIS BILATERALLY BY DOPPLER VELOCITIES Procedures: cardiac cath: subsequent PCI of left circumflex coronary artery with BMS Hospital course: Patient is a 77 years old -Cypriot male with past medical history of hypertension, who presented to the emergency department complaining of chest pain began 3 weeks ago intermittently, but got constant for one day before admission. Discharge diagnosis and management: Unstable angina EKG normal sinus rhythm, Negative cardiac enzyme X2 Placed on Nitroglycerin when necessary Abnormal stress test, patient was scheduled for coronary angiogram (LHC) for definitive diagnosis. Pt s/p LHC today via right femoral artery with subsequent PCI of left circumflex coronary artery with BMS. In setting of true ASA allergy, initiated effient alone and consider ASA desensitization as OP. Initiated lipitor. 2d echo EF 40-45% Systolic CHF with Ef 40-45%, unspecified chronicity - PRESENT ON ADMISSION - Now compensated - cont statin, BB, ACEI Hypertension Resumed on home antihypertensive pills given IV hydralazine for SBP >160 Hypokalemia Replaced and Closely monitored electrolytes Gastroesophageal reflux disease (GERD) Started him on protonix H/o tobacco use - quit smoking 40 years ago. ASA allergy, avoid aspirin Disposition: DC-01 TO HOME OR SELFCARE Time spent for discharge: 32 minutes Core Measure Documentation - Palliative Care Palliative Care/ Comfort Measures: Not Applicable - Core Measures Any of the following diagnoses?: none Exam - Constitutional Vitals: Temp Pulse Resp BP Pulse Ox 97.8 F 75 16 133/80 94 08/24/17 08:55 07/24/17 10:56 07/24/17 08:55 07/24/17 10:56 07/24/17 08:55 General appearance: Present: no acute distress, well-nourished - EENT Eyes: Present: PERRL ENT: hearing intact, clear oral mucosa - Neck Neck: Present: supple, normal ROM - Respiratory Respiratory effort: normal Respiratory: bilateral: CTA - Cardiovascular Heart Sounds: Present: S1 & S2. Absent: rub, click - Extremities Extremities: pulses symmetrical, No edema Peripheral Pulses: within normal limits - Abdominal General gastrointestinal: Present: soft, non-tender, non-distended, normal bowel sounds - Integumentary Integumentary: Present: clear, warm, dry - Musculoskeletal Musculoskeletal: gait normal, strength equal bilaterally - Psychiatric Psychiatric: appropriate mood/affect, intact judgment & insight - Neurologic Neurologic: CNII-XII intact, moves all extremities Plan Activity: advance as tolerated Weight Bearing Status: Non-Weight Bearing Diet: low fat, low cholesterol Special Instructions: restrict fluid intake to (1500 ml), record daily BP diary , follow up in rehab (cardiology) Follow up with: PRIMARY CARE,MD [Primary Care Provider] - 3-5 Days Prescriptions: AtorvaSTATin [Lipitor] 40 mg PO QHS #30 tablet Lisinopril [Zestril TAB] 20 mg PO QDAY #30 tablet Metoprolol [Lopressor TAB] 50 mg PO BID #30 tablet Nitroglycerin [Nitrostat] 0.4 mg SL .Q5MIN PRN #30 tablet PRN Reason: Chest Pain Pantoprazole [Protonix] 40 mg PO QDAY #30 tablet Prasugrel [Effient] 10 mg PO QDAY #30 tablet traMADol [Ultram 50 MG tab] 50 mg PO Q4HR PRN #12 tablet PRN Reason: Pain
--- NOTE | 2017-07-24 14:08 | Event Note ---
Date: 07/24/17 Currently stable cardiac status. BPs WNL, pt tolerating activity well. Pt may discharge home from cardiology standpoint. Follow up in our [place] office with Tawana Lange NP, on 07/30/2017 @ 1:00PM. Maurice LYONS NP / DR. BAPTISTE
[2017-07-24 14:44] VITALS: BP 140/88
--- NOTE | 2017-07-25 07:04 | Vascular Lab Report ---
CAROTID DUPLEX STUDY: RIGHT PSVEDV CCA PROX:5312 CCA DIST:5812 ICA PROX:8114 ICA MID:5717 ICA DIST:6819 ECA: 646 VERT: 55 18 LEFT PSVEDV CCA PROX:7910 CCA DIST:5912 ICA PROX:5414 ICA MID:7421 ICA DIST:6817 ECA: 729 VERT: 48 26 REASON FOR EXAM: Carotid artery stenosis/dizziness. COMMENTS ON THE RIGHT: Doppler frequency analysis is consistent with 16 to 49 percent diameter reduction of the internal carotid artery. Minimal amount of plaque is seen. The common carotid artery is patent. The external carotid artery is patent. The vertebral artery has antegrade flow. COMMENTS ON THE LEFT: Doppler frequency analysis is consistent with 16 to 49 percent diameter reduction of the internal carotid artery. Minimal amount of plaque is seen. The common carotid artery is patent. The external carotid artery is patent. The vertebral artery has antegrade flow. IMPRESSION: Less than 50% diameter reduction in the internal carotid arteries bilaterally. Consider repeat carotid artery duplex in 12 months.
== END 2017-07-24 15:09 | disposition home health service (06) | DRG 249 ==
LOC: ED 00:22 → 4A 08:41
PROVIDERS: ADMIT Internal Medicine; ATTEND Internal Medicine
PROC: 4A023N7 Measurement of Cardiac Sampling and Pressure, Left Heart, Percutaneous Approach (ICD-10-PCS; principal; 2017-07-23)
PROC: B2111ZZ Fluoroscopy of Multiple Coronary Arteries using Low Osmolar Contrast (ICD-10-PCS; 2017-07-23)
PROC: B2151ZZ Fluoroscopy of Left Heart using Low Osmolar Contrast (ICD-10-PCS; 2017-07-23)
PROC: 02703DZ Dilation of Coronary Artery, One Artery with Intraluminal Device, Percutaneous Approach (ICD-10-PCS; 2017-07-23)
DX: I25.110 Atherosclerotic heart disease of native coronary artery with unstable angina pectoris (principal); I50.20 Unspecified systolic (congestive) heart failure; K21.9 Gastro-esophageal reflux disease without esophagitis; I42.9 Cardiomyopathy, unspecified; I34.0 Nonrheumatic mitral (valve) insufficiency; M19.90 Unspecified osteoarthritis, unspecified site; E87.6 Hypokalemia; Z88.6 Allergy status to analgesic agent; Z88.0 Allergy status to penicillin; Z91.018 Allergy to other foods; Z82.49 Family history of ischemic heart disease and other diseases of the circulatory system; Z87.891 Personal history of nicotine dependence; I11.0 Hypertensive heart disease with heart failure
CPT/HCPCS: 36415; 71020; 71260; 78452; 80048; 80061; 82962; 84484; 85007; 85025; 85347; 85610; 87040; 92928; 92978; 93005; 93010; 93017; 93306; 93458; 93880; 94640; A9270-GY; A9502; C1753; C1769; C1876; C1887; C1894; J0583; J1644; J1650; J2250; J2270; J2785; J3010; J7030; J7040; J7050; Q9967

== ENCOUNTER 2018-01-13 07:17 | Outpatient (CLI) | payer MEDICARE ==
--- NOTE | 2018-01-13 08:42 | Cat Scan Report ---
CT CHEST WITHOUT CONTRAST: HISTORY: Right upper lobe mass, left renal mass. COMPARISON: CT chest dated 07/22/17. PET CT dated 02/13/17. CTA chest dated 01/16/17. TECHNIQUE: Helical CT in 1.25mm intervals without IV contrast. Sagittal and coronal reformatted images. FINDINGS: Thyroid gland: Normal. Tracheobronchial tree: Normal. Esophagus: Normal. Heart: Normal. Pericardium: Normal. Mediastinum: Moderate diffuse atherosclerotic disease throughout the aorta is again noted. Mild dilatation of the ascending aorta measures up to 4.5 cm. No mediastinal adenopathy or inflammation is detected on noncontrast CT. Lung Chan: Advanced emphysematous changes are again noted. The wedge-shaped pleural-based density in the posterior right upper lobe measurers 1.5 x 1.5 cm and appears unchanged since the CTA chest dated 01/16/17. No new pulmonary nodule or mass. Minor linear scarring in the anterior right upper lobe near midline measures 1.2 cm. No evidence for pneumonia. Pleural Spaces: Normal. Musculoskeletal: No evidence for fracture or aggressive bone lesion. 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 2.9 cm left renal mass is partially imaged on this exam. Please refer to the CT abdomen pelvis with and without contrast performed 10/06 at 17 IMPRESSION: No change in the pleural-based density in the posterior right upper lobe since 01/16/17 CTA chest. Advanced emphysema. Stable 4.5 cm dilatation of the ascending aorta.
== END 2018-01-13 07:18 | disposition home or self-care (01) ==
LOC: CT 07:17
PROVIDERS: ATTEND Specialist
DX: J43.9 Emphysema, unspecified (principal); J98.4 Other disorders of lung; I70.0 Atherosclerosis of aorta; D18.09 Hemangioma of other sites; I77.819 Aortic ectasia, unspecified site
CPT/HCPCS: 71250

== ENCOUNTER 2018-03-18 06:14 | Day surgery (SDC) | payer MEDICARE ==
[2018-03-18 06:56] VITALS: BP 188/89
[2018-03-18 07:19] LABS: Basophils % (Auto) 0.5 % (0.0-1.8); Eosinophils # (Auto) 0.3 K/mm3 (0.0-0.4); Eosinophils % (Auto) 4.1 % (0.0-4.3); Hemoglobin 12.6 gm/dl (11.8-15.2); Lymphocytes # (Auto) 1.7 K/mm3 (1.2-5.4); Lymphocytes % (Auto) 24.3 % (13.4-35.0); Mean Corpuscular HGB Conc 32 % (32-34); Mean Corpuscular Hemoglobin 30 pg (28-32); Mean Corpuscular Volume 91 fl (84-94); Monocytes # (Auto) 0.9 K/mm3 (0.0-0.8); Monocytes % (Auto) 12.5 % (0.0-7.3); Platelet Count 231 K/mm3 (140-440); Red Blood Count 4.28 M/mm3 (3.65-5.03); Red Cell Distribution Width 16.2 % (13.2-15.2)
[2018-03-18 07:28] LABS: INR 0.89 (0.87-1.13); Partial Thromboplastin Time 26.4 Sec. (24.2-36.6)
[2018-03-18 07:37] LABS: BUN/Creatinine Ratio 12; Blood Urea Nitrogen 12 mg/dL (9-20); Calcium 9.4 mg/dL (8.4-10.2); Hemolysis Index 40
[2018-03-18] MEDS ORDERED: NACL 0.9% 1000 ML 1,000 ML ONE (08:09)
--- NOTE | 2018-03-18 08:10 | Anesthesia Day of Surgery ---
Anesthesia Day of Surgery - Day of Surgery Patient Examined: Yes Patient H&P Reviewed: Yes Patient is NPO: Yes
[2018-03-18] MEDS ORDERED: ZOFRAN IV PRN (08:11)
[2018-03-18] MEDS ORDERED: DILAUDID IV PRN (08:11)
--- NOTE | 2018-03-18 08:11 | Anesthesia Consultation ---
Anesthesia Consult and Med Hx Date of service: 03/18/18 - Airway Anesthetic Teeth Evaluation: Good ROM Head & Neck: Adequate Mental/Hyoid Distance: Adequate Mallampati Class: Class II Intubation Access Assessment: Probably Good - Pulmonary Exam CTA: Yes - Cardiac Exam Cardiac Exam: RRR - Pre-Operative Health Status ASA Pre-Surgery Classification: ASA3 Proposed Anesthetic Plan: General - Pulmonary Hx Smoking: Yes (QUIT 1987) COPD: No Hx Sleep Apnea: No - Cardiovascular System Hx Hypertension: Yes - Central Nervous System Hx Psychiatric Problems: No - Gastrointestinal Hx Ulcer: Yes Hx Gastroesophageal Reflux Disease: No - Endocrine Hx Renal Disease: No - Other Systems Hx Alcohol Use: Yes (SOCIALLY) Hx Substance Use: No Hx Cancer: No Hx Obesity: No
[2018-03-18] MEDS ORDERED: SUBLIMAZE ONE (08:19)
[2018-03-18] MEDS ORDERED: DIPRIVAN 10 MG/ML IV ONE ×5 (08:20→08:21)
[2018-03-18] MEDS ORDERED: VERSED IV NR (09:00)
[2018-03-18] MEDS ORDERED: NACL 0.9% 1000 ML 1,000 ML IV SCH (09:00)
== END 2018-03-18 08:40 | disposition home or self-care (01) ==
LOC: CATHLABREC 06:14 → EDSTATUS 08:30 → CATHLABREC 08:40
PROVIDERS: ATTEND Radiology Diagnostic Radiology
DX: N28.89 Other specified disorders of kidney and ureter (principal); I10 Essential (primary) hypertension; Z53.8 Procedure and treatment not carried out for other reasons; Z87.891 Personal history of nicotine dependence
CPT/HCPCS: 36415; 80048; 85025; 85610; 85730; J2250; J2704; J7030; J3010

== ENCOUNTER 2018-11-16 07:25 | Day surgery (SDC) | payer MEDICARE ==
[2018-11-13 10:04] LABS: Basophils % (Auto) 0.2 % (0.0-1.8); Eosinophils # (Auto) 0.2 K/mm3 (0.0-0.4); Eosinophils % (Auto) 3.5 % (0.0-4.3); Hematocrit 40.8 % (35.5-45.6); Hemoglobin 13.3 gm/dl (11.8-15.2); Lymphocytes # (Auto) 1.6 K/mm3 (1.2-5.4); Lymphocytes % (Auto) 23.8 % (13.4-35.0); Mean Corpuscular HGB Conc 33 % (32-34); Mean Corpuscular Volume 90 fl (84-94); Monocytes % (Auto) 14.6 % (0.0-7.3); Platelet Count 224 K/mm3 (140-440); Red Blood Count 4.51 M/mm3 (3.65-5.03); Red Cell Distribution Width 13.6 % (13.2-15.2)
[2018-11-13 10:15] LABS: INR 0.99 (0.87-1.13)
[2018-11-13 10:25] LABS: Alanine Aminotransferase 6 units/L (7-56); Albumin 3.9 g/dL (3.9-5); BUN/Creatinine Ratio 13; Blood Urea Nitrogen 15 mg/dL (9-20); Calcium 8.7 mg/dL (8.4-10.2); Hemolysis Index 9
--- NOTE | 2018-11-13 10:40 | Anesthesia Consultation ---
Anesthesia Consult and Med Hx Date of service: 11/13/18 - Airway Anesthetic Teeth Evaluation: Good ROM Head & Neck: Adequate Mental/Hyoid Distance: Adequate Mallampati Class: Class II Intubation Access Assessment: Probably Good - Pulmonary Exam CTA: Yes - Cardiac Exam Cardiac Exam: RRR - Pre-Operative Health Status ASA Pre-Surgery Classification: ASA3 Proposed Anesthetic Plan: General - Pulmonary Hx Smoking: Yes (QUIT 1987) Hx Asthma: No SOB: Yes (with 3 FOS) COPD: Yes Home Oxygen Therapy: No Hx Sleep Apnea: No (EUNICE PRE SCREEN HIGH RISK) - Cardiovascular System Hx Hypertension: Yes Hx Coronary Artery Disease: Yes (s/p stent 2016) Hx Heart Attack/AMI: No Hx Cardia Arrhythmia: No Hx Pacemaker: No Hx Internal Defibrillator: No - Central Nervous System Hx Seizures: No CVA: No Hx Back Pain: Yes - Gastrointestinal Hx Ulcer: Yes (hx peptic ulcer) Hx Gastroesophageal Reflux Disease: No - Endocrine Hx Renal Disease: No Hx Liver Disease: No Hx Insulin Dependent Diabetes: No Hx Non-Insulin Dependent Diabetes: No Hx Thyroid Disease: No - Hematic Hx Anemia: No - Other Systems Hx Alcohol Use: Yes (SOCIALLY) Hx Substance Use: No Hx Cancer: Yes (hx renal ca s/p ablation) Hx Obesity: No - Additional Comments Anesthesia Medical History Comments: No hx anesthetic complications. Complains of occasional exertional dyspnea. Had nuc stress test in 01/2018 which was possible but LHC in 05/2018 showed 50-60% RCA lesion which was treated with medical management. TTE 05/2018 EF 55%, mild MR and TR. No orthopnea, edema, or angina. Patient not a candidate for neuraxial anesthesia since last dose of plavix was 11/12 and it will have only held 4 days prior to procedure.
[~2018-11-16 07:25] MED LIST: LACTATED RINGERS 1,000 ML IV SCH; PROVENTIL IH NR
[2018-11-16] MEDS ORDERED: ANCEF/STERILE WATER 2 GM/20 ML IV NR (09:00)
[2018-11-16] MEDS ORDERED: DIPRIVAN 10 MG/ML IV ONE (09:22)
[2018-11-16] MEDS ORDERED: SUBLIMAZE ONE (09:22)
[2018-11-16] MEDS ORDERED: XYLOCAINE MPF 2% ONE (09:23)
[2018-11-16] MEDS ORDERED: DILAUDID IV PRN (09:26)
[2018-11-16] MEDS ORDERED: LEVAQUIN 250MG/50ML 250 MG/50 ML BAG IV NR (09:30)
[2018-11-16] MEDS ORDERED: SUBLIMAZE IV ONE ×2 (09:30→10:00)
--- NOTE | 2018-11-16 09:30 | Anesthesia Day of Surgery ---
Anesthesia Day of Surgery - Day of Surgery Patient Examined: Yes Patient H&P Reviewed: Yes Patient is NPO: Yes
[2018-11-16] MEDS ORDERED: WATER FOR IRRIG STERILE IR ONE (09:45)
[2018-11-16] MEDS ORDERED: OMNIPAQUE 300 MG/50 ML (CATH LAB) IV ONE (09:45)
[2018-11-16] MEDS ORDERED: ZOFRAN ONE (10:17)
[2018-11-16] MEDS ORDERED: PERCOCET 5/325 PO PRN (11:03)
--- NOTE | 2018-11-16 11:47 | Post Operative Note ---
Date of procedure: 11/16/18 Pre-op diagnosis: hematuria Post-op diagnosis: same Findings: evidence mass LK Procedure: cysto rpgs Anesthesia: GETA Surgeon: JESUS BRASWELL Estimated blood loss: none Pathology: list (cytology) Condition: stable Disposition: PACU
--- NOTE | 2018-11-16 11:49 | Discharge Summary ---
Short Stay Discharge Plan Activity: other (no straining ) Weight Bearing Status: Full Weight Bearing Diet: low fat, low cholesterol, low salt Special Instructions: other (inc fluids ) Follow up with: GABI CORRAL MD [Primary Care Provider] - 7 Days JESUS BRASWELL MD [Staff Physician] - 10 Days
--- NOTE | 2018-11-16 12:09 | Post Anesthesia Evaluation ---
- Post Anesthesia Evaluation Patient Participated: Yes Airway Patent: Yes Stable Respiratory Function: Yes Nausea/Vomiting: No Temp > 96.8F: Yes Pain Manageable: Yes Adequeate Hydration: Yes Anesthesia Complications: No
--- NOTE | 2018-11-16 12:41 | Operative Report ---
PREOPERATIVE DIAGNOSIS: Gross hematuria. POSTOPERATIVE DIAGNOSES: Evidence of left renal mass, little splayed collecting system, and ____ enlarged prostate. PROCEDURE: Cystoscopy, retrograde. SURGEON: Amaury Mckeon MD ANESTHESIA: General. FINDINGS: This is a gentleman with a large prostate, gross hematuria, left renal mass, presents for treatment. DESCRIPTION OF PROCEDURE: The patient brought to the operating room and placed on the operating table. Following induction of anesthesia, placed in lithotomy position, prepped and draped in usual sterile fashion. Cystourethroscopy showed a normal urethra with an elongated prostatic urethra and trilobar hypertrophy. Bladder was 2-3+ trabeculated. Retrograde showed slight J hooking, but a delicate collecting system. On the left side, there was splaying of the upper pole calices consistent within the renal mass. There were no persistent filling defects. The patient tolerated the procedure well. Ureteroscopy was not performed, brought to recovery in stable condition. JOB# [id number] ELIZA/HILTON
[2018-11-16 14:00] VITALS: BP 151/79
--- NOTE | 2018-11-16 15:12 | Fluoroscopy Report ---
FLUOROSCOPY RETROGRADE UROGRAPHY: HISTORY: Gross hematuria. FINDINGS: Fluoroscopy was provided by radiology during retrograde urography by the urologist. 8 fluoroscopic images were captured. There is adequate filling of the ureters and intrarenal collecting systems with no filling defects or anatomic abnormalities identified. Please correlate with the procedural report if needed. IMPRESSION: Retrograde pyelograms within normal limits.
== END 2018-11-16 13:30 | disposition home or self-care (01) ==
LOC: OR 07:25
PROVIDERS: ATTEND Urology
DX: R31.0 Gross hematuria (principal); I11.0 Hypertensive heart disease with heart failure; I50.9 Heart failure, unspecified; I25.118 Atherosclerotic heart disease of native coronary artery with other forms of angina pectoris; E78.5 Hyperlipidemia, unspecified; J44.9 Chronic obstructive pulmonary disease, unspecified; M19.90 Unspecified osteoarthritis, unspecified site; K21.9 Gastro-esophageal reflux disease without esophagitis; Z88.6 Allergy status to analgesic agent; Z88.0 Allergy status to penicillin; Z91.030 Bee allergy status; Z91.018 Allergy to other foods; Z79.899 Other long term (current) drug therapy; Z87.891 Personal history of nicotine dependence; Z98.49 Cataract extraction status, unspecified eye; Z91.81 History of falling; Z98.890 Other specified postprocedural states; Z72.89 Other problems related to lifestyle; Z87.442 Personal history of urinary calculi; Z88.8 Allergy status to other drugs, medicaments and biological substances
CPT/HCPCS: 36415; 52000; 74420; 80053; 85025; 85610; 85730; 88112; A4217; C1758; J1956; J2405; J2704; J3010; J7120; Q9967

== ENCOUNTER 2019-09-17 12:32 | Emergency (ER) | payer MEDICARE ==
--- NOTE | 2019-09-17 13:05 | Event Note ---
ED Screening Note Date of service: 09/17/19 Time: 13:02 ED Screening Note: Pt complains of right foot pain x 6 days after dropping heavy item on foot and left foot pain x 3 weeks after hitting the foot on the edge of a hard surface. This initial assessment/diagnostic orders/clinical plan/treatment(s) is/are subject to change based on patients health status, clinical progression and re- assessment by fellow clinical providers in the ED. Further treatment and workup at subsequent clinical providers discretion. Patient/guardian urged not to elope from the ED as their condition may be serious if not clinically assessed and managed. Initial orders include: XR
--- NOTE | 2019-09-17 14:12 | XRay Report ---
BILATERAL FEET HISTORY: New injury to right midfoot and 3-week-old injury to left toe. COMPARISON: None. TECHNIQUE: 3 views of both feet were obtained. FINDINGS: Bones: No fracture or dislocation. Mild osteopenia. Joint spaces: Maintained. Soft tissues: No significant abnormality. Additional findings: Mild bilateral hallux valgus deformity. IMPRESSION: Negative study. No evidence of acute or subacute injury. Signer Name: Natalio Mancera MD Signed: 09/17/2019 2:08 PM Workstation Name: [id number]
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
[2019-09-17 16:14] VITALS: BP 164/90
== END 2019-09-17 16:12 | disposition home or self-care (01) ==
LOC: ED 12:32
DX: S90.122A Contusion of left lesser toe(s) without damage to nail, initial encounter (principal); S90.31XA Contusion of right foot, initial encounter; I11.0 Hypertensive heart disease with heart failure; I50.9 Heart failure, unspecified; K21.9 Gastro-esophageal reflux disease without esophagitis; M19.90 Unspecified osteoarthritis, unspecified site; J44.9 Chronic obstructive pulmonary disease, unspecified; D57.1 Sickle-cell disease without crisis; Z95.5 Presence of coronary angioplasty implant and graft; Z79.899 Other long term (current) drug therapy; Z88.6 Allergy status to analgesic agent; Z91.018 Allergy to other foods; Z88.0 Allergy status to penicillin; Z91.030 Bee allergy status; W22.8XXA Striking against or struck by other objects, initial encounter; Y93.89 Activity, other specified; Y92.89 Other specified places as the place of occurrence of the external cause; Y99.8 Other external cause status